=== PATIENT | female | born 1995 | race Caucasian/White ===

== ENCOUNTER 2018-03-02 20:36 | Emergency (ER) | payer OTHER ==
[2018-03-02 20:53] VITALS: BP 139/89
--- NOTE | 2018-03-02 21:02 | EDM.PDOC ---
ED HPI GENERAL MEDICAL PROBLEM - General Chief Complaint: Laceration Stated Complaint: Laceration to forehead Time Seen by Provider: 03/02/18 20:46 Source of Information: Reports: Patient, Family, RN, RN Notes Reviewed History Limitations: Reports: No Limitations - History of Present Illness INITIAL COMMENTS - FREE TEXT/NARRATIVE: Patient presents to the ED at [facility] after she sustained a laceration to the forehead. Patient states she was trying to close a trunk lid on a car when she got hit in the head, causing the laceration. No LOC. No previous injury or trauma. No headache. No visual field disturbances. Onset: Today, Sudden Onset Date: 03/02/18 Anterior Head Pain Score (Numeric/FACES): 8 - Related Data Allergies Allergy/AdvReac Type Severity Reaction Status Date / Time codeine Allergy Abdominal Verified 04/22/16 23:02 Pain Home Meds: Home Meds Cephalexin [Keflex] 500 mg PO DAILY 04/23/16 [History] Estradiol [Estrace Vaginal] 1 applic VAG BEDTIME 04/23/16 [History] Levonorgestrel [Kayleen] 1 each IY ONETIME 04/23/16 [History] QUEtiapine Fumarate [Seroquel] 50 mg PO BEDTIME 04/23/16 [History] buPROPion [Wellbutrin XL] 150 mg PO DAILY 04/23/16 [History] lamoTRIgine [Lamictal] 150 mg PO BID 04/23/16 [History] Adapalene [Differin] 45 gm TP DAILY 03/02/18 [History] Past Medical History Psychiatric History: Reports: Other (See Below) Other Psychiatric History: Patient is on Seroquel daily - Past Surgical History Musculoskeletal Surgical History: Reports: Other (See Below) Review of Systems - Review of Systems Review Of Systems: See Below Constitutional: Denies: Chills, Fever, Weakness Eyes: Denies: Vision Change Respiratory: Denies: Shortness of Breath, Cough Cardiovascular: Denies: Chest Pain, Palpitations Skin: Reports: Wound Neurological: Reports: No Symptoms. Denies: Confusion, Dizziness, Headache ED EXAM, GENERAL - Physical Exam Exam: See Below Exam Limited By: No Limitations General Appearance: Alert, No Apparent Distress Eye Exam: Bilateral Eye: EOMI, Normal Inspection, PERRL Head: Normocephalic, Other (wound to right upper forehead) Neck: Supple Respiratory/Chest: No Respiratory Distress, Lungs Clear, Normal Breath Sounds Cardiovascular: Normal Peripheral Pulses, Regular Rate, Rhythm Neurological: Alert, Oriented, Normal Cognition Skin Exam: Warm, Dry, Normal Color, Wound/Incision (3cm horizontal laceration to the right upper forehead; low grade venous ooze; will require closure) ED TRAUMA PROCEDURES - Laceration/Wound Repair Right Forehead Lac/Wound Length In cm: 3 Appearance: Subcutaneous, Linear, Clean Anesthetic Type: Other (none) Skin Prep: Chlorhexidine (Hibiciens), Saline Exploration/Debridement/Repair: Wound Explored, In a Bloodless Field, Explored to Base, No Foreign Material Found, Wound Margins Revised Closed With: Dermabond Sterile Dressing Applied: None Tetanus Status Addressed: Yes Complications: No Course - Vital Signs Last Recorded V/S: Last Vital Signs Temp 37.2 C 03/02/18 20:43 Pulse 119 H 03/02/18 20:43 Resp 20 03/02/18 20:43 BP 139/89 03/02/18 20:43 Pulse Ox 96 03/02/18 20:43 Departure - Departure Time of Disposition: 21:02 Disposition: Home, Self-Care 01 Condition: Good Clinical Impression: Forehead laceration Qualifiers: Encounter type: initial encounter Qualified Code(s): S01.81XA - Laceration without foreign body of other part of head, initial encounter - Discharge Information Instructions: Laceration Care, Adult, Wound Care, Adult, Stitches, Lina, or Adhesive Wound Closure Referrals: Jada Garcia PA-C [Primary Care Provider] - Additional Instructions: 1. Stay well hydrated and rest 2. Leave glue on and do not remove; glue will come off on its own as the laceration heals 3. May shower/bathe as usual; do not rub the affected area 4. Call with any questions/concerns - Problem List Review Problem List Initiated/Reviewed/Updated: Yes - Assessment/Plan Assessment:: Forehead laceration
== END 2018-03-02 21:10 | disposition home or self-care (01) ==
LOC: VM.ED 20:36
DX: S01.81XA Laceration without foreign body of other part of head, initial encounter (principal); Z79.899 Other long term (current) drug therapy; W22.8XXA Striking against or struck by other objects, initial encounter; Y93.89 Activity, other specified
CPT/HCPCS: 12013; 99282

== ENCOUNTER 2022-05-01 13:56 | Emergency (ER) | payer MEDICAID, OTHER ==
[2022-05-01 14:18] VITALS: BP 123/74; PULSE 86
== END 2022-05-01 16:30 | disposition home or self-care (01) ==
LOC: VM.ED 13:56
DX: F41.9 Anxiety disorder, unspecified (principal); Z88.5 Allergy status to narcotic agent
CPT/HCPCS: 81003; 93010; 99284; 99285

== ENCOUNTER 2024-04-30 16:07 | Emergency (ER) | payer OTHER, MEDICAID ==
[2024-04-30 16:16] LABS: BASOPHILS PERCENT AUTO 0.2 % (0.2-1.2); EOSINOPHILS ABSOLUTE AUTO 0.1 x10^3/uL (0.0-0.5); EOSINOPHILS PERCENT AUTO 1.2 % (0.0-4.0); HEMATOCRIT 42.3 % (33.0-47.0); HEMOGLOBIN 15.1 g/dL (12.0-16.0); IMMATURE GRAN ABSOLUTE AUTO 0.01 x10^3/uL (0.00-0.07); MEAN CORPUSCULAR HEMOGLOBIN 31.5 pg (26.0-32.0); MEAN CORPUSCULAR HGB CONC 35.7 g/dL (32.0-36.0); MEAN CORPUSCULAR VOLUME 88.1 fL (78.0-93.0); MONOCYTES ABSOLUTE AUTO 0.8 x10^3/uL (0.0-0.8); MONOCYTES PERCENT AUTO 6.9 % (2.0-11.0); NEUTROPHILS ABSOLUTE AUTO 7.1 x10^3/uL (1.8-7.7); NEUTROPHILS PERCENT AUTO 64.6 % (50.0-80.0); PLATELET COUNT,PLT 237 x10^3/uL (130-400)
[2024-04-30 16:28] LABS: A/G RATIO 1.76; ALANINE AMINOTRANSFERASE,ALT 21 U/L (14-59); ALBUMIN 4.4 g/dL (3.4-5.0); ALKALINE PHOSPHATASE 65 U/L (46-116); ASPARTATE AMNIOTRANSFERASE,AST 14 U/L (15-37); BILIRUBIN TOTAL 1.7 mg/dL (0.2-1.0); BLOOD UREA NITROGEN,BUN 15 mg/dL (7-18); CALCIUM 9.2 mg/dL (8.5-10.1); CARBON DIOXIDE,CO2 21 mmol/L (21-32); CHLORIDE,CL 107 mmol/L (98-107); CREATININE 1.2 mg/dL (0.55-1.02); GLUCOSE RANDOM 105 mg/dL (70-99); POTASSIUM,K 4.2 mmol/L (3.5-5.1); PROTEIN TOTAL,TP 6.9 g/dL (6.4-8.2); SODIUM,NA 141 mmol/L (136-145)
[2024-04-30 16:29] LABS: ANION GAP 17.2 mmol/L (5-15); ESTIMATED GFR 62 mL/min (>=60)
[2024-04-30 16:30] LABS: ETHANOL BLOOD MEDICAL < 3 mg/dL (0-3)
[2024-04-30 17:00] LABS: BILIRUBIN,URINE NEGATIVE (NEGATIVE); COLOR,URINE YELLOW (YELLOW); GLUCOSE,URINE NEGATIVE (NEGATIVE); KETONES,URINE TRACE mg/dL (NEGATIVE); LEUKOCYTE ESTERASE,URINE NEGATIVE (NEGATIVE); NITRITE,URINE NEGATIVE (NEGATIVE); OCCULT BLOOD,URINE NEGATIVE (NEGATIVE); PH,URINE 5.5 (5.0-8.0); PROTEIN,URINE NEGATIVE (NEGATIVE); UROBILINOGEN,URINE 0.2 EU/dL (0.2)
[2024-04-30 17:01] LABS: APPEARANCE,URINE CLEAR (CLEAR)
[2024-04-30 17:02] LABS: AMPHETAMINES SCREEN, URINE NEGATIVE (NEGATIVE); BARBITURATE SCREEN,URINE NEGATIVE (NEGATIVE); BENZODIAZEPINES SCREEN,URINE NEGATIVE (NEGATIVE); BUPRENORPHINE SCREEN,URINE NEGATIVE (NEGATIVE); COCAINE METABOLITES,URINE NEGATIVE (NEGATIVE); METHADONE SCREEN, URINE NEGATIVE (NEGATIVE); METHAMPHETAMINE SCREEN, URINE NEGATIVE (NEGATIVE); OXYCODONE SCREEN,URINE NEGATIVE (NEGATIVE); PCP SCREEN,URINE NEGATIVE (NEGATIVE); THC SCREEN,URINE 50 NG/ML NEGATIVE (NEGATIVE)
[2024-04-30] MEDS: Acetaminophen 500 MG Tab PO ONE (18:19)
== END 2024-04-30 18:53 | disposition home or self-care (01) ==
LOC: VM.ED 16:07
DX: S13.4XXA Sprain of ligaments of cervical spine, initial encounter (principal); S09.90XA Unspecified injury of head, initial encounter; S40.012A Contusion of left shoulder, initial encounter; Z88.5 Allergy status to narcotic agent; Z79.899 Other long term (current) drug therapy; V49.49XA Driver injured in collision with other motor vehicles in traffic accident, initial encounter; Y93.89 Activity, other specified
CPT/HCPCS: 70450; 71045; 72125; 72170; 73030-LT; 80053; 80305-QW; 80307; 81003; 81025; 85025; 99283; 99284; A9270-GY